=== PATIENT | female | born 2005 | race Caucasian/White ===

== ENCOUNTER 2024-07-30 11:23 | Day surgery (SDC) | payer OTHER, SELFPAY ==
--- NOTE | 2024-07-07 16:19 | PCM.HP.BLA ---
History and Physical Date of Admission: 07/30/24 HPI: The patient is a 18 year old female presenting for pre-operative visit. She is scheduled for hymenectomy and IUD insertion, for imperforate hymen and contraception on 07/30/24. Procedure discussed along with risks, benefits and complications. Other alternatives discussed for management. Consent form signed? Yes. ? ? PAST MEDICAL HISTORY PAST MEDICAL HISTORYDiagnosisDate?Acne vulgaris09/21/2016?Allergic rhinitis due to other allergen??[id number]/29/2012?Esophageal reflux??Unspecified asthma, with status asthmaticus??Unspecified epilepsy without mention of intractable epilepsy (HCC)? ? ? PAST SURGICAL HISTORY PAST SURGICAL HISTORYProcedureLateralityDate?NONE???PAST SURGICAL HISTORY OF???adnoidectomy ? ? ? CURRENT MEDICATIONS Current Outpatient MedicationsMedicationSigDispenseRefill?medroxyPROGESTERone (PROVERA) 10 mg tabletTAKE 1 TABLET BY MOUTH ONCE DAILY. DAY 21-28 OF CYCLE.90 tablet1?ferrous sulfate (IRON ORAL)Take by mouth.???Clindamycin-Benzoyl Peroxide 1-5 % gelApply to affected area two times a day. APPLY TO AFFECTED AREA50 g1?albuterol HFA (PROAIR HFA) 90 mcg/actuation inhalerInhale 2 Puffs as instructed every 4 hours as needed for wheezing/shortness of breath.1 Inhaler1?tretinoin (RETIN-A) 0.05 % creamApply to affected area daily at bedtime.45 g3?montelukast (SINGULAIR) 10 mg tabletTake 1 tablet by mouth daily at bedtime.90 tablet3?rizatriptan (MAXALT-CUTTING MACHINE TENDER DECORATIVE) 10 mg disintegrating tabletTake 1 tablet by mouth as needed (DISSOLVE ONE TABLET ON TONGUE WITH ONSET OF MIGRAINE. MAY REPEAT DOSE IN 2 HOURS FOR TOTAL OF 2 TIMES. MAXIMUM DOSE IS 30 MG/24 HOURS.). May repeat in 2 hours if gozwth43 tablet1?cholecalciferol (VITAMIN D-3) 2,000 unit tabletTake 1 tablet by mouth once daily.???multivitamin tabletTake 1 tablet by mouth once daily.?0?loratadine (CLARITIN) 10 mg tabletTake 1 tablet by mouth once daily.30 [id number]?No current facility-administered medications for this visit. ? ? ALLERGIES: Latex, Pineapple, and Topamax [Topiramate] ? PERSONAL HISTORY: SOCIAL HISTORY Social History?Tobacco Use?Smoking status:Never?Smokeless tobacco:NeverVaping Use?Vaping status:Never UsedSubstance Use Topics?Alcohol use:No?Drug use:No ? FAMILY HISTORY: FAMILY HISTORY FAMILY HISTORY ProblemRelationAge of Onset?AsthmaMother??AsthmaFather??other (multiple myoloma)Maternal Grandmother??Breast CancerMaternal great-grandmother? ? ? REVIEW OF SYMPTOMS: GENERAL: denies fevers or chills ENDOCRINOLOGY: has not been on steroids Cardiology : denies palpitations or chest pain Respiratory: denies SOB or cough Hematology: denies history of prolonged bleeding or easy bruising or VTE Allergy: Denies history of personal or family history of allergy to anesthesia ? PHYSICAL EXAMINATION: ? VITALS: Blood pressure 112/64, weight 64.4 kg (142 lb), last menstrual period 06/09/2024. ? GENERAL: The patient is well nourished, well hydrated in no acute distress. , The patient is oriented to time, place, and person. NECK: Supple. No lynphadenopathy, normal thyroid, no thyromegaly. LUNGS: Clear to auscultation bilaterally. no wheezes, rhonchi or rales HEART: Regular rate and rhythm, Normal heart sounds, and No murmurs or gallops ? IMPRESSION: imperforate hymen, contraception- desires IUD insertion ? PLAN: The risks/benefits/alternatives and personal involved for the planned hymenectomy and levonorgestrel IUD insertion were reviewed with the patient. Her questions were answered to her satisfaction and she desires to proceed. Consent was signed. I reviewed with her postop instructions and expectations. ? ? I have reviewed and updated past medical and surgical history, medications and allergies Assessment & Plan Assessment/Plan (1) Imperforate hymen: (2) Encounter for IUD insertion:
[2024-07-30] VITALS (9 sets, daily range): BP systolic 122–140; BP diastolic 73–94; PULSE 60–82; RESP 16; TEMP 36.4–37.3; O2SAT 100; BMI 24.4
[2024-07-30 11:56] LABS: Internal QC Validated? YES +Cl - CLEAR BKGD
[2024-07-30 11:57] LABS: Pregnancy, Urine Negative Negative
[2024-07-30] MEDS: Lactated Ringers 1,000 ML 15 ML IV (11:57)
[2024-07-30] MEDS: Acetaminophen 500 MG Tablet 1000 MG PO (11:57)
[2024-07-30] MEDS: Ketorolac 30 MG/ML Syringe IV (11:57)
--- NOTE | 2024-07-30 12:09 | PCM.PRE.AN2 ---
ASA Classification* ASA Classification ASA Classification: 2 Assessment & Plan Anesthesia* Anesthesia Assessment Anesthesia Assessment: Discussed sedation and/or anesthesia options, risks, benefits, and alternatives with patient/parents/legal guardian/POA. Questions invited. The patient/parents/legal guardian/POA seems to understand and agrees to proceed with anesthesia plan. Reviewed the physical assessment, medical history, allergy history and patient home medications list prior to surgery/procedure/anesthetic and documented any changes. Performed airway and anesthesia risk assessments. Anesthesia Type Anesthesia Type: MAC Anesthesia Focused Assessment* Temperature: 97.6 F Pulse Rate: 71 Blood Pressure: 122/78 Respiratory Rate: 16 Pulse Ox: 100 Airway Assessment Mouth opens: >3 cm Mallampati Score: II Focused Labs Anesthesia Preop lab: CBC CHEMISTRY COAG Urine Test Negative Negative 07/30/24 11:40 07/30/24 Pre-Assessment Diagnosis/Proposed Procedure Planned Operative Procedure(s): HYMENECTOMY LILETTA IUD INSERTION Anesthesia History Anesthesia History - dev manager: Anesthesia History - dev manager Hx Hospitalization No 07/27/24 16:16 Any Problems With Anesthesia No 07/27/24 16:16 Cholinesterase deficiency No 07/27/24 16:16 You/Your Family Experience No 07/27/24 16:16 fever (hyperthermia) with Relationship Recent Exposure to Contagious No 07/30/24 11:59 Disease Does patient have nerve No 07/27/24 16:16 stimulator Patient instructed to have device shut off --Does patient have Pacemaker No 07/30/24 11:59 or ICD? When Was Last Pacemaker Check QUESTION #4 FULL TEXT: You/Your Family Experience fever (hyperthermia) with Anesthesia Last Oral Intake Last Oral intake: Last Oral Intake NPO since 07:30 07/30/24 11:59 Meds taken in AM with sips of No 07/30/24 11:59 water? Meds patient instructed to take am of surgery PONV PONV - dev manager: PONV - dev manager Female Yes 07/27/24 16:16 HX of Motion Sickness No 07/27/24 16:16 HX of N/V After Surgery No 07/27/24 16:16 Non-Smoker Yes 07/27/24 16:16 Duration of Surgery greater No 07/27/24 16:16 than 60 minutes Number of Risk Factors 2 07/27/24 16:16 PONV Score Moderate Risk 07/27/24 16:16 Height & Weight Height & Weight: Anesthesia: Height & Weight Height 5 ft 3 in 07/30/24 11:59 Weight: 62.6 kg 07/30/24 11:59 Body Mass Index (BMI) 24.4 07/30/24 11:59 Respiratory Assessment Respiratory Assessment - dev manager: Respiratory Tract Infection Hx - dev manager Hx Respiratory Tract Infection No 07/27/24 16:16 STOP Sleep Apnea STOP Sleep Apnea - dev manager: STOP Sleep Apnea - dev manager Hx Hypertension No 07/27/24 16:16 Hx Sleep Apnea No 07/27/24 16:16 CPAP BIPAP Do you snore loudly (louder No 07/27/24 16:16 than talking or can be heard Do you often feel tired/ No 07/27/24 16:16 fatigued/ sleepy during daytime? Has anyone observed you stop No 07/27/24 16:16 breathing during sleep? STOP Results Negative 07/27/24 16:16 QUESTION #5 FULL TEXT : Do you snore loudly (louder than talking or can be heard through closed doors)? 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 Specify any problems Hx of Preganancy in last 3 No 07/27/24 16:16 Months Nurse Filling Out Transfusion DSCHRIBER 07/27/24 16:16 & Questions: Date: 07/27/24 07/27/24 16:16 Time: 16:17 07/27/24 16:16 Patient unable to answer at this time (ie. confused, unrespo /Reproduction History /Reproductive History - dev manager: /Reproductive Hx- dev manager Hx Now No 07/27/24 16:16 Gestational Age (in weeks): EDC: Hx Hx Para Hx Section SAB No 07/27/24 16:16 Active Medications Active Medications: Current Medications Generic Name Dose Route Start Last Admin Trade Name Freq PRN Reason Stop Dose Admin Acetaminophen 1,000 mg 07/30/24 13:00 07/30/24 11:57 Acetaminophen 500 Mg Tablet PO 07/30/24 13:01 1,000 mg X1 ONE Administration Lactated Ringer's 1,000 mls @ 15 mls/hr 07/30/24 12:00 07/30/24 11:57 IV 15 mls/hr .Q48H MARIANN Administration Ketorolac Tromethamine 30 mg 07/30/24 13:00 07/30/24 11:57 Ketorolac 30 Mg/Ml Syringe IV 07/30/24 13:01 30 mg X1 ONE Administration Levonorgestrel 1 each 07/30/24 13:00 Levonorgestrel Iud (Liletta) INTRA-UTER 07/30/24 13:01 X1 ONE PFSH Medical History Wears contact lenses Anemia Migraine headache Seizures Non-smoker Home Medications ?Medication ?Instructions ?Recorded ?Last Taken ?Type ascorbic acid (vitamin C) 1,000 mg 1 g PO DAILY 07/27/24 07/29/24 History tablet (C-1000) cholecalciferol (vitamin D3) 25 25 mcg PO DAILY 07/27/24 07/29/24 History mcg (1,000 unit) capsule (Vitamin D3) multivitamin (Daily Multi-Vitamin 1 tab PO DAILY 07/27/24 07/29/24 History tablet) Allergy/AdvReac Type Severity Reaction Status Date / Time latex Allergy Intermediate Rash Verified 07/30/24 11:56 Surgical History History of wisdom tooth extraction Hx of adenoidectomy Social History Smoking Status: Never smoker Review of Systems (Anesthesia) ROS Narrative System reviewed and no additional complaints, except as documented.
--- NOTE | 2024-07-30 13:31 | DCINST_ITS ---
Discharge Instructions DC O2, CPAP, BIPAP needs Home O2 Discharge instructions: No Dressing / Incision Return to work on:: 07/31/24 May resume sexual activity in: 2 weeks Lifting Restrictions: none Dressing / Incision Call your doctor if your incision/area has: Sudden Increased Bleeding and Foul Smelling Discharge Call your doctor if you observe: Fever of 101 or Higher and Using more than 1 pad per hour (for 2 hrs in a row) Follow Up Care Please Follow Up With: Michelle Mauricio MD When: 1-2 weeks or as needed. Call [phone] or send a [employer] message to make an appointment or with any concerns. Test Results: Test results from this visit will be discussed in further detail at your follow- up appointment, if applicable. Discharge Plan Admission Primary Reason for Your Visit: Hymenectomy and IUD insertion Attending Provider: Michelle Mauricio Primary Care Provider: Catalina Juarez Instructions Print Language: Lao Discharge Orders/Prescriptions Prescriptions: No Action multivitamin [Daily Multi-Vitamin] Tablet 1 tab PO DAILY cholecalciferol (vitamin D3) [Vitamin D3] 25 mcg (1,000 unit) capsule 25 mcg PO DAILY ascorbic acid (vitamin C) [C-1000] 1,000 mg tablet 1 g PO DAILY Disposition Disposition (needs filled in before D/C Order can be placed): Home, Self Care
[2024-07-30] MEDS: Lidocaine 1% /Epi 1:100 (20ml) 20 ML Vial (13:36)
[2024-07-30] MEDS: Levonorgestrel IUD (Liletta) 1 EACH INTRA-UTER (13:38)
--- NOTE | 2024-07-30 13:48 | OP.PCM_ITS ---
Problems Associated Problem List Diagnoses (1) Encounter for IUD insertion: (2) Imperforate hymen: Operative Report (Standard) Operative Information Date of Procedure: 07/30/24 Pre-Operative Diagnosis: imperforate hymen, desires IUD for contraception Post-Operative Diagnosis: same Surgery/Procedure Performed: Hymenectomy and Liletta IUD insertion transfer operator: No Type of Anesthesia: Local MAC RN Documented Start/Stop Times: Operation Date: 07/30/24 13:00 Case Time Into Pre-Op 07/30/24 11:46 Procedure Start Time: 13:36 Procedure Stop Time: 13:46 Select all DRAINS/GRAFTS/IMPLANTS that apply: Implanted device Implanted device details: Liletta IUD Estimated Blood Loss: 5 Fluids Replaced: 600 cc LR Specimen collected: No Description of surgery: The patient was taken the operating room where she is prepped draped in dorsal lithotomy position and a neurologically safe and neutral position. Her legs were positioned in yellowfin stirrups. There was a band from anterior to posterior of the hymen that was taken down sharply after infiltration with 1% Xylocaine with dilute epinephrine solution. The thick hymenal posterior began was then incised at 5 and 7:00. The edges were oversewn with 3-0 Vicryl repeat suture and were hemostatic. The diameter of the introitus was then normal at approximately 2 cm with normal stretch. The uterus was retroverted and sounded to 8 cm. The cervix was cleansed with Hibiclens and grasped with a single-tooth tenaculum. The Liletta intrauterine device was inserted in the usual sterile fashion without difficulty and the strings were cut to 2 cm. The patient tolerated the procedure well and the tenaculum was removed. The sites were hemostatic. The instruments removed from the vagina and a vaginal sweep was completed by me. Sponge and needle counts were correct. Surgical Findings: imperforate hymen with thick band, normal vulva, normal cervix and vagina Complications Complications: No Admit VTE Documentation VTE Present on Admission: No VTE Mechan Device Prophylaxis: [facility] [place] Prophylaxis ordered?: No
--- NOTE | 2024-07-30 15:42 | PCM.POST.ANE ---
Anesthesia: Postop Eval I Current Vital Signs Temperature: 98.5 F Pulse Rate: 60 Blood Pressure: 130/85 Respiratory Rate: 16 Pulse Ox: 100 Oxygen Delivery Method: Room Air Assessment Airway patent: Yes Spontaneous unlabored respirations: Yes Mental status: Awake and Calm nausea: No Vomiting: No Anesthesia Complication: No Fluid Hydration Crystalloid volume administer (ml): 600 Total IV fluid infused: 600 Progress Note Anesthesia document: Postop Eval 1 completed: Yes
--- NOTE | 2024-07-30 16:12 | POSTOPAN2_ITS ---
Anesthesia Postop Eval I Sum Postop Eval Completion status Anesthesia document: Postop Eval 1 completed: Yes Anesthesia Postop Eval I Summary Anesthesia Postop Eval I Summary: Anesthesia Postop Eval I: Assessment Summary Airway patent Yes 07/30/24 15:43 [email or web address] Spontaneous unlabored Yes 07/30/24 15:43 [email or web address] respirations Mental status Awake,Calm 07/30/24 15:43 [email or web address] nausea No 07/30/24 15:43 [email or web address] Vomiting No 07/30/24 15:43 [email or web address] Anesthesia Postop Eval I: Fluid Summary Crystalloid volume administer 600 07/30/24 15:43 [email or web address] (ml) Colloids volume administered ( ml) Blood Product volume administered (ml) Total IV fluid infused 600 07/30/24 15:43 [email or web address] Anesthesia Postop Eval I: Summary Notes Anesthesia Complication No 07/30/24 15:43 [email or web address] Anesthesia Complication Comment: Post-operative progress note Anesthesia: Postop Eval II Evaluation Mental status: Awake Pain Level: 0 nausea: No Vomiting: No
--- NOTE | 2024-07-30 16:12 | PCM.POSTANE2 ---
Anesthesia Postop Eval I Sum Postop Eval Completion status Anesthesia document: Postop Eval 1 completed: Yes Anesthesia Postop Eval I Summary Anesthesia Postop Eval I Summary: Anesthesia Postop Eval I: Assessment Summary Airway patent Yes 07/30/24 15:43 DEATH CLAIM EXAMINER.[email or web address] Spontaneous unlabored Yes 07/30/24 15:43 DEATH CLAIM EXAMINER.JBLOU respirations Mental status Awake,Calm 07/30/24 15:43 DEATH CLAIM EXAMINER.JBLOU nausea No 07/30/24 15:43 DEATH CLAIM EXAMINER.JBLOU Vomiting No 07/30/24 15:43 DEATH CLAIM EXAMINER.JBLOU Anesthesia Postop Eval I: Fluid Summary Crystalloid volume administer 600 07/30/24 15:43 DEATH CLAIM EXAMINER.JBLOU (ml) Colloids volume administered ( ml) Blood Product volume administered (ml) Total IV fluid infused 600 07/30/24 15:43 DEATH CLAIM EXAMINER.JBLOU Anesthesia Postop Eval I: Summary Notes Anesthesia Complication No 07/30/24 15:43 DEATH CLAIM EXAMINER.JBLOU Anesthesia Complication Comment: Post-operative progress note Anesthesia: Postop Eval II Evaluation Mental status: Awake Pain Level: 0 nausea: No Vomiting: No
== END 2024-07-30 14:53 | disposition home or self-care (01) ==
LOC: SDC 11:37 → AC 11:39
PROVIDERS: PCP Nurse Practitioner Family; Referring Provider Obstetrics & Gynecology; Visit Provider Obstetrics & Gynecology
PROC: (CPT 56700; principal; 2024-07-30 12:50)
DX: Q52.3 Imperforate hymen (principal); Z30.430 Encounter for insertion of intrauterine contraceptive device
CPT/HCPCS: 56700; 58300; 00940; 81025